=== PATIENT | female | born 1975 | race Two or more races ===

== ENCOUNTER 2020-09-27 15:14 | Emergency (ER) | payer OTHER ==
[~2020-09-27] VITALS: Ht 167.6 cm; Wt 77.0 kg
[2020-09-27 18:23] LABS: HEMATOCRIT. 43.3 % (36.0-48.0); HEMOGLOBIN. 14.5 g/dL (12.0-16.0); MEAN CORPUSCULAR HEMOGLOBIN 27.7 pg (28.0-32.0); MEAN CORPUSCULAR VOLUME 82.5 fL (81.0-99.0); MEAN PLATELET VOLUME 8.3 fl (7.4-10.4); PLATELET 241 x1000/uL (130-400); RED BLOOD CELL COUNT 5.24 mill/uL (4.2-5.4); RED CELL DISTRIBUTION WIDTH 14.1 % (11.6-14.6)
[2020-09-27 18:31] LABS: CHLORIDE 109 mEq/L (98-107)
[2020-09-27 18:37] LABS: HCG SCREEN NEGATIVE
[2020-09-27 18:44] LABS: PLATELET ESTIMATE NORMAL
[2020-09-27] MEDS ORDERED: LORAZEPAM 2MG/ML CPJ IV NR (19:15)
[2020-09-27] MEDS ORDERED: ONDANSETRON HCL 4MG/2ML INJ IV NR (19:15)
[2020-09-27] MEDS ORDERED: LACTATED RINGERS 1,000 ML IV SCH (19:15)
[2020-09-27 20:43] LABS: CLARITY URINE CLEAR (CLEAR); COLOR URINE DARK YELLOW (YELLOW); KETONES URINE 3+ (NEGATIVE); LEUKOCYTE ESTERASE URINE 2+ (NEGATIVE); NITRITE URINE NEGATIVE (NEGATIVE); OCCULT BLOOD URINE NEGATIVE (NEGATIVE); PH URINE 5.5 (4.5-8.0); PROTEIN URINE TRACE (NEGATIVE); UROBILINOGEN URINE 0.2 E.U./dL (0.2-1.0)
[2020-09-27 21:53] VITALS: BP 125/65
== END 2020-09-27 21:49 | disposition short-term general hospital (02) ==
LOC: ER 15:14
DX: R42 Dizziness and giddiness (principal); E03.9 Hypothyroidism, unspecified; G43.909 Migraine, unspecified, not intractable, without status migrainosus; D64.9 Anemia, unspecified; D72.829 Elevated white blood cell count, unspecified; E86.0 Dehydration
CPT/HCPCS: 36415; 71046; 80048; 80076; 81003; 84703; 85025; 93005; 96361; 96374; 96375; 99285; J2060; J2405; Z7610